=== PATIENT | male | born 1950 | race Caucasian/White ===

== ENCOUNTER 2021-06-12 05:45 | Inpatient (IN) | payer OTHER ==
[~2021-06-12] VITALS: Ht 160 cm; Wt 70.4 kg
[2021-06-12] MEDS ORDERED: TAMS-13 PO (06:15)
[2021-06-12] MEDS ORDERED: LISI-893 PO (06:19)
[2021-06-12 06:42] LABS: BASOPHILS % (AUTO) 0.2 % (0.0-2.0); EOSINOPHILS % (AUTO) 1.2 % (1.0-6.0); HEMATOCRIT 43.5 % (41-53); LYMPHOCYTES # (AUTO) 0.7 K/uL (1.0-4.8); LYMPHOCYTES % (AUTO) 9.1 % (22.0-44.0); MEAN CORPUSCULAR HEMOGLOBIN 31.6 pg (26.0-34.0); MEAN CORPUSCULAR HGB CONC 34.5 G/dL (31.0-37.0); MEAN CORPUSCULAR VOLUME 91 fL (80-100); MONOCYTES # (AUTO) 0.2 K/uL (0.1-1.0); MONOCYTES % (AUTO) 2.5 % (2.0-9.0); NEUTROPHILS # (AUTO) 7.1 K/uL (1.8-7.7); PLATELET COUNT (AUTO) 85 K/uL (150-450); RED BLOOD CELL COUNT(AUTO) 4.76 MIL/uL (4.50-5.90); RED CELL DISTRIBUTION WIDTH 13.9 % (11.5-14.5)
[2021-06-12 06:51] LABS: PROTHROMBIN TIME 10.9 SEC (9.4-11.6)
[2021-06-12 06:53] LABS: ANION GAP 12 mmol/L (8-16); CALCIUM, TOTAL 8.7 mg/dL (8.8-10.5); CARBON DIOXIDE 29 mmol/L (22-29); CHLORIDE 103 mmol/L (98-107); GLOMERULAR FILTR. RATE CALC > 60 mL/min (>60); GLUCOSE,RANDOM 102 mg/dL (70-110); POTASSIUM 4.3 mmol/L (3.5-5.1); SODIUM SERUM 144 mmol/L (136-145); UREA NITROGEN, BLOOD 14 mg/dL (7-18)
[2021-06-12] MEDS ORDERED: ACETAMINOPHEN 500 MG TABLET PO ONE (07:00)
[2021-06-12 07:02] LABS: ALANINE AMINOTRANSFERASE 107 U/L (12-78); ALBUMIN 3.8 g/dL (3.4-5.0); ALKALINE PHOSPHATASE 157 U/L (46-116); ASPARTATE AMINOTRANSFERASE 123 U/L (15-37); BILIRUBIN,TOTAL 0.7 mg/dL (0.1-1.0); CREATINE KINASE, TOTAL ONLY 188 U/L (39-308); TOTAL PROTEIN, SERUM 7.1 g/dL (6.4-8.2)
[2021-06-12 07:08] LABS: B-TYPE NATRIURETIC PEPTIDE 25 pg/mL (0-100)
[2021-06-12 07:29] LABS: COVID AG,FIA SOURCE NASOPHARYNGEAL
[2021-06-12] MEDS ORDERED: ACETAMINOPHEN 325 MG TABLET PO PRN ×2 (07:30→13:00)
[2021-06-12] MEDS ORDERED: ONDANSETRON HCL 4 MG/2 ML VIAL IVP PRN ×2 (07:30→13:00)
[2021-06-12] MEDS ORDERED: 0.9% SODIUM CHLORIDE 10 ML SYRINGE IVP PRN (07:30)
[2021-06-12 07:39] LABS: APPEARANCE,URINE CLEAR (CLEAR); BILIRUBIN,URINE NEGATIVE (NEGATIVE); GLUCOSE, URINE (UA) NEGATIVE (NEGATIVE); KETONES,URINE NEGATIVE (NEGATIVE); LEUKOCYTE ESTERASE ,URINE NEGATIVE (NEGATIVE); NITRATE,URINE NEGATIVE (NEGATIVE); OCCULT BLOOD,URINE NEGATIVE (NEGATIVE); PH,URINE 5.5 (5.0-8.0); PROTEIN,URINE NEGATIVE (NEGATIVE); UROBILINOGEN,URINE 0.2 mg/dL (<=1.0)
[2021-06-12 08:50] VITALS: BP 124/74
[2021-06-12 11:42] VITALS: BP 129/67
[2021-06-12] MEDS ORDERED: IOHEXOL 350 MG/ML 100 ML VIAL ONE (12:33)
[2021-06-12] MEDS ORDERED: ZOLPIDEM TARTRATE 5 MG TABLET PO PRN (13:00)
[2021-06-12] MEDS ORDERED: BISACODYL 10 MG RECTAL RECTAL SUPPOSITORY PR PRN (13:00)
[2021-06-12] MEDS ORDERED: MORPHINE SULFATE 2 MG/ML SYRINGE IVP PRN (13:00)
[2021-06-12] MEDS ORDERED: MAGNESIUM HYDROXIDE SUSPENSION 30 ML UDCUP PO PRN (13:00)
[2021-06-12] MEDS ORDERED: HYDROCODONE/ACETAMINOPHEN 5-325 MG TABLET PO PRN (13:00)
[2021-06-12 15:46] VITALS: BP 149/76
[2021-06-12] MEDS ORDERED: HEPARIN SODIUM,PORCINE 5,000 UNITS/ML VIAL SQ SCH (16:00)
[2021-06-12 20:11] VITALS: BP 157/91
[2021-06-12] MEDS: DOCUSATE SODIUM 100 MG CAPSULE PO SCH (20:31)
[2021-06-12 23:48] VITALS: BP 105/63
[2021-06-13 03:37] VITALS: BP 150/83
[2021-06-13 07:16] VITALS: BP 94/53
[2021-06-13 08:00] LABS: BASOPHILS % (AUTO) 0.3 % (0.0-2.0); EOSINOPHILS % (AUTO) 0.1 % (1.0-6.0); HEMATOCRIT 43.3 % (41-53); HEMOGLOBIN 15.1 g/dL (13.5-17.5); LYMPHOCYTES # (AUTO) 0.6 K/uL (1.0-4.8); LYMPHOCYTES % (AUTO) 7.7 % (22.0-44.0); MEAN CORPUSCULAR HEMOGLOBIN 31.6 pg (26.0-34.0); MEAN CORPUSCULAR HGB CONC 34.9 G/dL (31.0-37.0); MEAN CORPUSCULAR VOLUME 91 fL (80-100); MONOCYTES # (AUTO) 0.7 K/uL (0.1-1.0); MONOCYTES % (AUTO) 8.5 % (2.0-9.0); NEUTROPHILS # (AUTO) 6.4 K/uL (1.8-7.7); NEUTROPHILS % (AUTO) 83.4 % (40.0-70.0); PLATELET COUNT (AUTO) 105 K/uL (150-450); RED BLOOD CELL COUNT(AUTO) 4.78 MIL/uL (4.50-5.90); RED CELL DISTRIBUTION WIDTH 13.9 % (11.5-14.5)
[2021-06-13 08:04] LABS: B-TYPE NATRIURETIC PEPTIDE 91 pg/mL (0-100)
[2021-06-13 08:17] LABS: ALANINE AMINOTRANSFERASE 147 U/L (12-78); ALBUMIN 3.3 g/dL (3.4-5.0); ALKALINE PHOSPHATASE 200 U/L (46-116); ANION GAP 8 mmol/L (8-16); ASPARTATE AMINOTRANSFERASE 185 U/L (15-37); BILIRUBIN,TOTAL 0.8 mg/dL (0.1-1.0); CALCIUM, TOTAL 8.5 mg/dL (8.8-10.5); CARBON DIOXIDE 24 mmol/L (22-29); CHLORIDE 101 mmol/L (98-107); CHOL/HDL RATIO 2.9 (4.2-7.3); CHOLESTEROL 136 mg/dL (131-200); CREATININE 1.11 mg/dL (0.60-1.30); GLOMERULAR FILTR. RATE CALC > 60 mL/min (>60); GLUCOSE,RANDOM 126 mg/dL (70-110); HDL CHOLESTEROL 47 mg/dL (40-60); LDL CHOL (CALC.) 76 mg/dL (0-130); POTASSIUM 3.8 mmol/L (3.5-5.1); SODIUM SERUM 133 mmol/L (136-145); TOTAL PROTEIN, SERUM 6.9 g/dL (6.4-8.2); TRIGLYCERIDES 66 mg/dL (15-150); UREA NITROGEN, BLOOD 16 mg/dL (7-18)
[2021-06-13] MEDS: TAMSULOSIN HCL 0.4 MG CAPSULE PO SCH (09:52)
[2021-06-13] MEDS: LISINOPRIL 10 MG TABLET PO SCH (09:53)
[2021-06-13] MEDS: PANTOPRAZOLE SODIUM 40 MG DR TABLET PO SCH (09:54)
[2021-06-13] MEDS: DOCUSATE SODIUM 100 MG CAPSULE PO SCH ×2 (09:54→20:51)
[2021-06-13 10:32] LABS: AMYLASE 41 U/L (25-115); LIPASE 52 U/L (73-393)
[2021-06-13 11:02] VITALS: BP 116/68
[2021-06-13 17:02] VITALS: BP 100/62
[2021-06-13 20:04] VITALS: BP 108/64
[2021-06-13 23:47] VITALS: BP 100/63
[2021-06-14 04:09] VITALS: BP 108/75
[2021-06-14 08:56] VITALS: BP 92/74
[2021-06-14] MEDS: LISINOPRIL 10 MG TABLET PO SCH (09:17)
[2021-06-14] MEDS: DOCUSATE SODIUM 100 MG CAPSULE PO SCH (09:17)
[2021-06-14] MEDS: PANTOPRAZOLE SODIUM 40 MG DR TABLET PO SCH (09:17)
[2021-06-14] MEDS: TAMSULOSIN HCL 0.4 MG CAPSULE PO SCH (09:17)
[2021-06-14 12:31] VITALS: BP 124/76
[2021-06-14 16:36] VITALS: BP 118/73
== END 2021-06-14 16:00 | disposition home or self-care (01) | DRG 313 ==
LOC: EMS 05:47 → 5S 09:00 → 6N 18:40 → 5S 18:41
PROVIDERS: ADMIT Internal Medicine; ATTEND Internal Medicine
DX: R07.89 Other chest pain (principal); Q24.0 Dextrocardia; M54.9 Dorsalgia, unspecified; I10 Essential (primary) hypertension; N40.0 Benign prostatic hyperplasia without lower urinary tract symptoms; Z20.822 Contact with and (suspected) exposure to COVID-19; Z79.899 Other long term (current) drug therapy; Z87.891 Personal history of nicotine dependence
CPT/HCPCS: 71045; 71275; 76700; 80053; 80061; 81003; 82150; 82550; 83036; 83690; 83880; 84484; 85025; 85610; 85730; 87040; 93005; 93306; 99285; J1644; Q9967; 36415-L1; 36415-TC